=== PATIENT | male | born 1995 | race Caucasian/White ===

== ENCOUNTER 2022-10-21 07:04 | Emergency (ER) | payer OTHER, SELFPAY ==
[2022-10-21 07:06] VITALS: BP 134/86; PULSE 81; RESP 16; TEMP 36.4; O2SAT 100; BMI 21.2
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
[2022-10-21 08:12] VITALS: BP 118/80; PULSE 82; RESP 16; O2SAT 100
== END 2022-10-21 08:14 | disposition home or self-care (01) ==
PROVIDERS: Emergency Provider Emergency Medicine; Visit Provider Emergency Medicine
DX: S00.03XA Contusion of scalp, initial encounter (principal); S06.0X9A Concussion with loss of consciousness of unspecified duration, initial encounter; V43.52XA Car driver injured in collision with other type car in traffic accident, initial encounter
CPT/HCPCS: 70450; 72125; 99284